=== PATIENT | female | born 1945 | race Hispanic/Latino ===

== ENCOUNTER 2021-06-03 11:06 | Inpatient (IN) | payer OTHER ==
[~2021-06-03] VITALS: Ht 160 cm; Wt 63.0 kg
[2021-06-03 11:08] VITALS: BP 111/66
[2021-06-03 12:00] VITALS: BP 99/65
[2021-06-03] MEDS ORDERED: 0.9%NACL 1000ML 1,000 ML IV ONE (13:00)
[2021-06-03 13:14] LABS: BASOPHILS % (AUTO) 0.4 % (0.0-5.0); EOSINOPHILS % (AUTO) 0.7 % (0.0-8.0); LYMPHOCYTES % (AUTO) 9.7 % (21.0-51.0); MEAN CORPUSCULAR HEMOGLOBIN 27.8 pg (27.0-33.0); MEAN CORPUSCULAR HGB CONC 32.8 g/dL (32.0-36.0); MEAN CORPUSCULAR VOLUME 84.8 fL (79-99); MONOCYTES % (AUTO) 6.3 % (3.0-13.0); PLATELET COUNT (AUTO) 374 K/uL (130-400); RED CELL DISTRIBUTION WIDTH 12.6 % (11.0-15.5); WHITE BLOOD COUNT (AUTO) 7.6 K/uL (4.8-10.8)
[2021-06-03 13:30] LABS: CREATININE 1.1 mg/dL (0.5-1.5); POTASSIUM 4.7 mmol/L (3.5-5.1)
[2021-06-03 13:32] LABS: INR 0.94 (0.85-1.15); PROTHROMBIN TIME 10.3 SEC (9.6-11.6)
[2021-06-03 13:34] LABS: APPEARANCE,URINE Clear (CLEAR); BILIRUBIN,URINE Negative (NEGATIVE); COLOR,URINE Yellow (YELLOW); GLUCOSE, URINE (UA) TRACE mg/dL (NEGATIVE); KETONES,URINE Negative (NEGATIVE); LEUKOCYTE ESTERASE ,URINE Trace (NEGATIVE); NITRATE,URINE Negative (NEGATIVE); OCCULT BLOOD,URINE Negative (NEGATIVE); PROTEIN,URINE Negative (NEGATIVE); UROBILINOGEN,URINE 0.2 mg/dL (0.2-1.0)
[2021-06-03 13:35] LABS: ALBUMIN 2.3 g/dL (3.5-5.0); BILIRUBIN,TOTAL 0.7 mg/dL (0.2-1.0); TOTAL PROTEIN, SERUM 7.5 g/dL (6.0-8.3)
[2021-06-03 13:37] LABS: B-TYPE NATRIURETIC PEPTIDE 171 pg/mL (0-100)
[2021-06-03 13:43] LABS: BACTERIA,URINE Rare /HPF (None Seen); MUCUS,URINE Rare LPF (None Seen); SQUAMOUS EPITHELIAL CELL,UR Few /HPF (0-2)
[2021-06-03 14:00] VITALS: BP 128/57
[2021-06-03] MEDS ORDERED: ACETAMINOPHEN 500 MG TABLET PO ONE (14:30)
[2021-06-03 15:49] VITALS: BP 99/65
[2021-06-03 16:09] VITALS: BP 127/60
[2021-06-03] MEDS ORDERED: PHARMACY COMMUNICATION MISC SCH (16:30)
[2021-06-03] MEDS: INSULIN HUMULIN R 100 UNIT/ML 3ML SQ SCH ×2 (16:30→21:10)
[2021-06-03 16:38] LABS: CRP QUANTITATIVE 46.5 mg/L (0.00-9.0)
[2021-06-03] MEDS ORDERED: COMPOUND IV REFRIGERATED 1 EACH IVSOLN MISC PRN (18:00)
[2021-06-03] MEDS ORDERED: REMDESIVIR (EUA) 520 200 MG in 0.9% NACL 250ML 250 ML IV ONE (18:00)
[2021-06-03 19:36] VITALS: BP 123/74
[2021-06-03] MEDS: ACETAMINOPHEN 325 MG TAB PO PRN (20:46)
[2021-06-03] MEDS: DEXAMETHASONE SOD PHOSPHATE 4 MG/ML 1ML VIAL IVP SCH (20:47)
[2021-06-04 00:26] VITALS: BP 140/71
[2021-06-04] MEDS ORDERED: CEFTRIAXONE 1G VIAL IVP ONE (05:30)
[2021-06-04] MEDS: REMDESIVIR LABS MISC SCH (06:00)
[2021-06-04 06:02] VITALS: BP 122/78
[2021-06-04 07:22] LABS: BASOPHILS % (AUTO) 0.2 % (0.0-5.0); HEMATOCRIT 37.2 % (36-48); LYMPHOCYTES % (AUTO) 8.3 % (21.0-51.0); MEAN CORPUSCULAR HEMOGLOBIN 28.5 pg (27.0-33.0); MEAN CORPUSCULAR HGB CONC 33.3 g/dL (32.0-36.0); MEAN CORPUSCULAR VOLUME 85.5 fL (79-99); MONOCYTES % (AUTO) 4.2 % (3.0-13.0); NEUTROPHILS % (AUTO) 86.1 % (40.0-77.0); PLATELET COUNT (AUTO) 417 K/uL (130-400); RED BLOOD CELL COUNT(AUTO) 4.35 MIL/uL (4.00-5.50); RED CELL DISTRIBUTION WIDTH 12.7 % (11.0-15.5); WHITE BLOOD COUNT (AUTO) 6.6 K/uL (4.8-10.8)
[2021-06-04 07:39] LABS: ALBUMIN 2.4 g/dL (3.5-5.0); BILIRUBIN,TOTAL 0.4 mg/dL (0.2-1.0); CREATININE 0.9 mg/dL (0.5-1.5); CRP QUANTITATIVE 49.7 mg/L (0.00-9.0); POTASSIUM 4.3 mmol/L (3.5-5.1); TOTAL PROTEIN, SERUM 7.2 g/dL (6.0-8.3)
[2021-06-04] MEDS ORDERED: ENOXAPARIN SODIUM 30 MG/0.3 ML SQ ONE (09:00)
[2021-06-04] MEDS: DOXYCYCLINE HYCLATE 100 MG TABLET PO SCH ×2 (09:41→20:58)
[2021-06-04] MEDS: PANTOPRAZOLE 40 MG TAB DR PO SCH (09:41)
[2021-06-04] MEDS: INSULIN HUMULIN R 100 UNIT/ML 3ML SQ SCH ×4 (09:42→21:55)
[2021-06-04 09:54] VITALS: BP 127/75
[2021-06-04] MEDS: ACETAMINOPHEN 325 MG TAB PO PRN ×2 (13:00→21:59)
[2021-06-04] MEDS: REMDESIVIR (EUA) 520 100 MG in 0.9% NACL 250ML 250 ML IV SCH (18:32)
[2021-06-04] MEDS: DEXAMETHASONE SOD PHOSPHATE 4 MG/ML 1ML VIAL IVP SCH (20:25)
[2021-06-04 20:54] VITALS: BP 144/83
[2021-06-04] MEDS: ENOXAPARIN SODIUM 30 MG/0.3 ML SQ SCH (20:58)
[2021-06-05 00:27] VITALS: BP 132/64
[2021-06-05 04:41] VITALS: BP 147/83
[2021-06-05 05:52] LABS: BASOPHILS % (AUTO) 0.2 % (0.0-5.0); HEMATOCRIT 38.4 % (36-48); LYMPHOCYTES % (AUTO) 6.5 % (21.0-51.0); MEAN CORPUSCULAR HGB CONC 32.6 g/dL (32.0-36.0); MEAN CORPUSCULAR VOLUME 86.1 fL (79-99); MONOCYTES % (AUTO) 4.4 % (3.0-13.0); NEUTROPHILS % (AUTO) 87.8 % (40.0-77.0); PLATELET COUNT (AUTO) 479 K/uL (130-400); RED BLOOD CELL COUNT(AUTO) 4.46 MIL/uL (4.00-5.50); RED CELL DISTRIBUTION WIDTH 12.8 % (11.0-15.5); WHITE BLOOD COUNT (AUTO) 8.1 K/uL (4.8-10.8)
[2021-06-05 06:10] LABS: ALBUMIN 2.3 g/dL (3.5-5.0); BILIRUBIN,TOTAL 0.4 mg/dL (0.2-1.0); CREATININE 0.8 mg/dL (0.5-1.5); POTASSIUM 4.3 mmol/L (3.5-5.1); TOTAL PROTEIN, SERUM 6.8 g/dL (6.0-8.3)
[2021-06-05] MEDS: REMDESIVIR LABS MISC SCH (06:54)
[2021-06-05 07:33] VITALS: BP 129/71
[2021-06-05] MEDS: INSULIN HUMULIN R 100 UNIT/ML 3ML SQ SCH ×4 (07:57→20:26)
[2021-06-05] MEDS: PANTOPRAZOLE 40 MG TAB DR PO SCH (08:45)
[2021-06-05] MEDS: ENOXAPARIN SODIUM 30 MG/0.3 ML SQ SCH ×2 (08:45→20:48)
[2021-06-05] MEDS: DOXYCYCLINE HYCLATE 100 MG TABLET PO SCH ×2 (08:45→20:47)
[2021-06-05] MEDS ORDERED: INSULIN GLARGINE 100 UNITS/ML 10 ML VIAL SQ ONE (09:30)
[2021-06-05] MEDS: REMDESIVIR (EUA) 520 100 MG in 0.9% NACL 250ML 250 ML IV SCH (17:17)
[2021-06-05] MEDS: DEXAMETHASONE SOD PHOSPHATE 4 MG/ML 1ML VIAL IVP SCH (20:08)
[2021-06-05 20:12] VITALS: BP 138/74
[2021-06-05] MEDS: ACETAMINOPHEN 325 MG TAB PO PRN (22:04)
[2021-06-06] VITALS (8 sets, daily range): BP systolic 114–144; BP diastolic 63–84
[2021-06-06] MEDS: ACETAMINOPHEN 325 MG TAB PO PRN (04:29)
[2021-06-06] MEDS: REMDESIVIR LABS MISC SCH (06:00)
[2021-06-06] MEDS: INSULIN HUMULIN R 100 UNIT/ML 3ML SQ SCH ×4 (09:23→21:00)
[2021-06-06] MEDS: DOXYCYCLINE HYCLATE 100 MG TABLET PO SCH ×2 (09:23→21:15)
[2021-06-06] MEDS: PANTOPRAZOLE 40 MG TAB DR PO SCH (09:23)
[2021-06-06] MEDS: ENOXAPARIN SODIUM 30 MG/0.3 ML SQ SCH ×2 (09:23→21:15)
[2021-06-06 09:24] LABS: BASOPHILS % (AUTO) 0.1 % (0.0-5.0); HEMATOCRIT 41.3 % (36-48); LYMPHOCYTES % (AUTO) 8.8 % (21.0-51.0); MEAN CORPUSCULAR VOLUME 87.5 fL (79-99); MONOCYTES % (AUTO) 5.2 % (3.0-13.0); NEUTROPHILS % (AUTO) 84.9 % (40.0-77.0); PLATELET COUNT (AUTO) 566 K/uL (130-400); RED BLOOD CELL COUNT(AUTO) 4.72 MIL/uL (4.00-5.50); RED CELL DISTRIBUTION WIDTH 12.8 % (11.0-15.5)
[2021-06-06 09:29] LABS: CREATININE 0.9 mg/dL (0.5-1.5); POTASSIUM 4.1 mmol/L (3.5-5.1)
[2021-06-06 09:33] LABS: ALBUMIN 2.5 g/dL (3.5-5.0); BILIRUBIN,TOTAL 0.6 mg/dL (0.2-1.0); TOTAL PROTEIN, SERUM 7.5 g/dL (6.0-8.3)
[2021-06-06] MEDS: REMDESIVIR (EUA) 520 100 MG in 0.9% NACL 250ML 250 ML IV SCH (17:42)
[2021-06-06] MEDS: DEXAMETHASONE SOD PHOSPHATE 4 MG/ML 1ML VIAL IVP SCH (21:17)
[2021-06-06] MEDS ORDERED: METF-445 PO (23:11)
[2021-06-06] MEDS ORDERED: ENAL10TA18 PO (23:11)
[2021-06-07 04:03] VITALS: BP 127/61
[2021-06-07 04:54] LABS: BASOPHILS % (AUTO) 0.1 % (0.0-5.0); HEMATOCRIT 39.9 % (36-48); LYMPHOCYTES % (AUTO) 7.6 % (21.0-51.0); MEAN CORPUSCULAR HEMOGLOBIN 27.5 pg (27.0-33.0); MEAN CORPUSCULAR HGB CONC 31.6 g/dL (32.0-36.0); MEAN CORPUSCULAR VOLUME 86.9 fL (79-99); MONOCYTES % (AUTO) 3.3 % (3.0-13.0); NEUTROPHILS % (AUTO) 88.3 % (40.0-77.0); PLATELET COUNT (AUTO) 477 K/uL (130-400); RED BLOOD CELL COUNT(AUTO) 4.59 MIL/uL (4.00-5.50); RED CELL DISTRIBUTION WIDTH 12.7 % (11.0-15.5); WHITE BLOOD COUNT (AUTO) 7.7 K/uL (4.8-10.8)
[2021-06-07] MEDS: REMDESIVIR LABS MISC SCH (05:08)
[2021-06-07 05:15] LABS: ALBUMIN 2.3 g/dL (3.5-5.0); BILIRUBIN,TOTAL 0.6 mg/dL (0.2-1.0); CREATININE 0.9 mg/dL (0.5-1.5); CRP QUANTITATIVE 19.3 mg/L (0.00-9.0); POTASSIUM 4.5 mmol/L (3.5-5.1); TOTAL PROTEIN, SERUM 6.7 g/dL (6.0-8.3)
[2021-06-07] MEDS: INSULIN HUMULIN R 100 UNIT/ML 3ML SQ SCH ×4 (06:18→21:00)
[2021-06-07 08:00] VITALS: BP 140/74
[2021-06-07] MEDS: DOXYCYCLINE HYCLATE 100 MG TABLET PO SCH ×2 (08:03→20:09)
[2021-06-07] MEDS: PANTOPRAZOLE 40 MG TAB DR PO SCH (08:03)
[2021-06-07] MEDS: ENOXAPARIN SODIUM 30 MG/0.3 ML SQ SCH ×2 (08:04→20:09)
[2021-06-07 12:00] VITALS: BP 107/48
[2021-06-07 16:00] VITALS: BP 120/58
[2021-06-07] MEDS: REMDESIVIR (EUA) 520 100 MG in 0.9% NACL 250ML 250 ML IV SCH (17:06)
[2021-06-07] MEDS: DEXAMETHASONE SOD PHOSPHATE 4 MG/ML 1ML VIAL IVP SCH (20:09)
[2021-06-07 20:12] VITALS: BP 112/65
[2021-06-07 23:38] VITALS: BP 119/73
[2021-06-08] VITALS (7 sets, daily range): BP systolic 88–121; BP diastolic 47–71
[2021-06-08] MEDS: INSULIN HUMULIN R 100 UNIT/ML 3ML SQ SCH ×4 (06:34→19:53)
[2021-06-08] MEDS: DOXYCYCLINE HYCLATE 100 MG TABLET PO SCH ×2 (08:01→19:39)
[2021-06-08] MEDS: PANTOPRAZOLE 40 MG TAB DR PO SCH (08:01)
[2021-06-08] MEDS: ENOXAPARIN SODIUM 30 MG/0.3 ML SQ SCH ×2 (08:02→19:40)
[2021-06-08] MEDS: DEXAMETHASONE SOD PHOSPHATE 4 MG/ML 1ML VIAL IVP SCH (19:39)
[2021-06-08] MEDS: ACETAMINOPHEN 325 MG TAB PO PRN (19:41)
[2021-06-09 03:57] VITALS: BP 93/57
[2021-06-09] MEDS: INSULIN HUMULIN R 100 UNIT/ML 3ML SQ SCH ×4 (06:02→21:08)
[2021-06-09 07:15] VITALS: BP 105/64
[2021-06-09] MEDS: ENOXAPARIN SODIUM 30 MG/0.3 ML SQ SCH ×2 (09:52→20:02)
[2021-06-09] MEDS: DOXYCYCLINE HYCLATE 100 MG TABLET PO SCH ×2 (09:52→20:01)
[2021-06-09] MEDS: PANTOPRAZOLE 40 MG TAB DR PO SCH (09:52)
[2021-06-09 10:21] LABS: HEMATOCRIT 38.6 % (36-48); LYMPHOCYTES % (AUTO) 14.3 % (21.0-51.0); MEAN CORPUSCULAR HEMOGLOBIN 28.4 pg (27.0-33.0); MEAN CORPUSCULAR HGB CONC 32.6 g/dL (32.0-36.0); MEAN CORPUSCULAR VOLUME 87.1 fL (79-99); MONOCYTES % (AUTO) 9.2 % (3.0-13.0); NEUTROPHILS % (AUTO) 75.4 % (40.0-77.0); PLATELET COUNT (AUTO) 499 K/uL (130-400); RED BLOOD CELL COUNT(AUTO) 4.43 MIL/uL (4.00-5.50); RED CELL DISTRIBUTION WIDTH 12.7 % (11.0-15.5); WHITE BLOOD COUNT (AUTO) 6.2 K/uL (4.8-10.8)
[2021-06-09 10:41] LABS: ALBUMIN 2.3 g/dL (3.5-5.0); BILIRUBIN,TOTAL 0.7 mg/dL (0.2-1.0); CREATININE 0.9 mg/dL (0.5-1.5); POTASSIUM 4.1 mmol/L (3.5-5.1); TOTAL PROTEIN, SERUM 6.4 g/dL (6.0-8.3)
[2021-06-09 11:57] VITALS: BP 106/50
[2021-06-09 15:20] VITALS: BP 125/51
[2021-06-09 20:00] VITALS: BP 100/50
[2021-06-09] MEDS: DEXAMETHASONE SOD PHOSPHATE 4 MG/ML 1ML VIAL IVP SCH (20:01)
[2021-06-09] MEDS: ACETAMINOPHEN 325 MG TAB PO PRN (21:33)
[2021-06-10] VITALS: BP 112/63
[2021-06-10 04:00] VITALS: BP 131/77
[2021-06-10 04:10] LABS: BASOPHILS % (AUTO) 0.1 % (0.0-5.0); HEMATOCRIT 38.3 % (36-48); LYMPHOCYTES % (AUTO) 8.2 % (21.0-51.0); MEAN CORPUSCULAR HEMOGLOBIN 28.1 pg (27.0-33.0); MEAN CORPUSCULAR HGB CONC 31.6 g/dL (32.0-36.0); MEAN CORPUSCULAR VOLUME 88.9 fL (79-99); NEUTROPHILS % (AUTO) 88.9 % (40.0-77.0); PLATELET COUNT (AUTO) 453 K/uL (130-400); RED BLOOD CELL COUNT(AUTO) 4.31 MIL/uL (4.00-5.50); RED CELL DISTRIBUTION WIDTH 12.7 % (11.0-15.5); WHITE BLOOD COUNT (AUTO) 8.4 K/uL (4.8-10.8)
[2021-06-10 04:24] LABS: ALBUMIN 2.3 g/dL (3.5-5.0); BILIRUBIN,TOTAL 0.8 mg/dL (0.2-1.0); TOTAL PROTEIN, SERUM 6.4 g/dL (6.0-8.3)
[2021-06-10] MEDS: INSULIN HUMULIN R 100 UNIT/ML 3ML SQ SCH (06:28)
[2021-06-10 08:00] VITALS: BP 119/69
[2021-06-10] MEDS: DOXYCYCLINE HYCLATE 100 MG TABLET PO SCH (09:08)
[2021-06-10] MEDS: ENOXAPARIN SODIUM 30 MG/0.3 ML SQ SCH (09:09)
[2021-06-10] MEDS: PANTOPRAZOLE 40 MG TAB DR PO SCH (09:09)
[2021-06-10 12:09] VITALS: BP 114/66
== END 2021-06-10 12:47 | disposition home or self-care (01) | DRG 177 ==
LOC: EDH 11:06 → EDHIP 11:07 → 4AH 06-06 22:42
PROVIDERS: ADMIT Internal Medicine; ATTEND Internal Medicine
PROC: XW033E5 Introduction of Remdesivir Anti-infective into Peripheral Vein, Percutaneous Approach, New Technology Group 5 (ICD-10-PCS; principal; 2021-06-03)
DX: U07.1 COVID-19 (principal); J96.01 Acute respiratory failure with hypoxia; J12.82 Pneumonia due to coronavirus disease 2019; D68.59 Other primary thrombophilia; A08.39 Other viral enteritis; E87.1 Hypo-osmolality and hyponatremia; E44.0 Moderate protein-calorie malnutrition; I10 Essential (primary) hypertension; E11.65 Type 2 diabetes mellitus with hyperglycemia; R54 Age-related physical debility; D72.810 Lymphocytopenia; E78.00 Pure hypercholesterolemia, unspecified; Z79.4 Long term (current) use of insulin; Z68.24 Body mass index [BMI] 24.0-24.9, adult
CPT/HCPCS: 36415; 71045; 74176; 80053; 81001; 82550; 82728; 82948; 83036; 83615; 83880; 84145; 84443; 84484; 85025; 85378; 85610; 86140; 87426; 87804; 93005; 93970; G0378; J0696; J1100; J1650; J1815; J7030; J7050